=== PATIENT | female | born 1980 | race Caucasian/White ===

== ENCOUNTER 2018-04-11 05:29 | Inpatient (IN) | payer OTHER ==
[2018-04-11] MEDS ORDERED: NACL 0.9% 3 ML SYG IV (06:00)
[2018-04-11] MEDS ORDERED: DOCUSATE SODIUM 100 MG CAP PO (06:00)
[2018-04-11] MEDS ORDERED: ONDANSETRON 4 MG INJ IV (06:00)
[2018-04-11 07:17] LABS: ADD MAN DIFF? NO; HAAIG REFLEX REFLEX FILED
[2018-04-11 07:26] LABS: BASOPHIL # 0.1 10^3/ul (0.0-0.1); BASOPHILS % 0.2 % (0.0-2.0); EOSINOPHILS % 0.1 % (0.0-7.0); HEMATOCRIT 24.5 % (37.0-47.0); HEMOGLOBIN 7.8 g/dl (12.0-16.0); LYMPHOCYTES # 1.3 10^3/ul (0.8-2.9); LYMPHOCYTES % 6.1 % (15.0-51.0); MEAN CORPUSCULAR HEMOGLOBIN 32.5 pg (29.0-33.0); MEAN CORPUSCULAR HGB CONC 31.8 g/dl (32.0-37.0); MEAN CORPUSCULAR VOLUME 102.1 fl (82.0-101.0); MEAN PLATELET VOLUME 9.7 fl (7.4-10.4); MONOCYTE # 1.2 10^3/ul (0.3-0.9); MONOCYTES % 5.7 % (0.0-11.0); NEUTROPHIL # 17.9 10^3/ul (1.6-7.5); NEUTROPHILS % 87.1 % (39.0-77.0); PLATELET COUNT 408 10^3/UL (140-415); RED CELL DISTRIBUTION WIDTH 17.4 % (11.5-14.5)
[2018-04-11 07:26] LABS: WHITE BLOOD COUNT 20.6 10^3/ul (4.8-10.8)
[2018-04-11 07:39] LABS: ALANINE AMINOTRANSFERASE 13 IU/L (13-69); ALBUMIN 2.4 g/dl (3.3-4.9); ALBUMIN/GLOBULIN RATIO 0.58; ALKALINE PHOSPHATASE 206 IU/L (42-121); ANION GAP 11 (5-13); ASPARTATE AMINO TRANSFERASE 200 IU/L (15-46); BILIRUBIN,INDIRECT 0.9 mg/dl (0-1.1); BILIRUBIN,TOTAL 2.5 mg/dl (0.2-1.3); CALCIUM 7.3 mg/dl (8.4-10.2); CARBON DIOXIDE 27 mmol/L (21-31); CHLORIDE 98 mmol/L (97-110); CREATININE 0.36 mg/dl (0.44-1.00); Estimated GFR > 60 mL/min (>60); GLUCOSE 87 mg/dl (70-220); POTASSIUM 3.1 mmol/L (3.5-5.1); SODIUM 136 mmol/L (135-144); TOTAL PROTEIN 6.5 g/dl (6.1-8.1)
[2018-04-11 07:41] LABS: BLOOD UREA NITROGEN < 2 mg/dl (7-20)
[2018-04-11 08:09] LABS: HEPATITIS B SURFACE ANTIGEN NEGATIVE (NEGATIVE)
[2018-04-11 08:12] LABS: FERRITIN 58.6 ng/ml (6.2-137.0)
[2018-04-11 08:26] LABS: HEPATITIS B CORE ANTIBODY NEGATIVE (NEGATIVE); HEPATITIS C VIRAL ANTIBODY NEGATIVE (NEGATIVE)
[2018-04-11] MEDS: POTASSIUM CHLORIDE (SR) 20 MEQ TAB PO (08:29)
[2018-04-11] MEDS ORDERED: ESCITALOPRAM 10 MG TAB PO (09:00)
[2018-04-11] MEDS ORDERED: GABAPENTIN 300 MG CAP PO (09:00)
[2018-04-11 09:33] LABS: FOLATE 4.1 ng/ml (2.8-20.0)
[2018-04-11 09:33] LABS: CREATINE KINASE < 20 IU/L (23-200)
[2018-04-11] MEDS: CEFTRIAXONE 2 GM/50 ML (PMX) 50 ML IVPB (09:38)
[2018-04-11 09:53] LABS: LACTATE DEHYDROGENASE 376 IU/L (313-618)
[2018-04-11 09:53] LABS: IRON 35 ug/dl (35-150)
[2018-04-11 10:02] LABS: % IRON SATURATION 18 % SAT (22-52); TOTAL IRON BINDING CAPACITY 200 ug/dl (241-421)
[2018-04-11 12:47] LABS: INR 1.64; PROTIME 19.8 Sec (11.9-14.9); PT RATIO 1.5
[2018-04-11] MEDS: ACETAMINOPHEN 325 MG TAB PO (14:37)
[2018-04-11] MEDS: FUROSEMIDE 20 MG TAB PO (16:00)
[2018-04-11] MEDS: SPIRONOLACTONE 50 MG TAB PO (17:30)
[2018-04-11] MEDS: LIDOCAINE 1% (MPF) 5 ML VIAL (18:18)
[2018-04-11 19:24] LABS: FLD RBC 1000 /uL; FLD WBC 22 /cmm
[2018-04-11 19:28] LABS: FLUID GLUCOSE 102 mg/dl
[2018-04-11 19:29] LABS: FLUID TOTAL PROTEIN < 2.0 g/dl; FLUID TYPE ASCITES FLUID
[2018-04-11 19:32] LABS: FLD TYPE ASCITES
[2018-04-11 19:33] LABS: FLD CLARITY HAZY; FLD COLOR YELLOW
[2018-04-12 06:11] LABS: ADD MAN DIFF? NO
[2018-04-12 06:13] LABS: WHITE BLOOD COUNT 20.5 10^3/ul (4.8-10.8)
[2018-04-12 06:13] LABS: BASOPHIL # 0.1 10^3/ul (0.0-0.1); BASOPHILS % 0.3 % (0.0-2.0); EOSINOPHILS % 0.2 % (0.0-7.0); HEMATOCRIT 24.3 % (37.0-47.0); HEMOGLOBIN 7.9 g/dl (12.0-16.0); LYMPHOCYTES # 1.2 10^3/ul (0.8-2.9); MEAN CORPUSCULAR HEMOGLOBIN 33.1 pg (29.0-33.0); MEAN CORPUSCULAR HGB CONC 32.5 g/dl (32.0-37.0); MEAN CORPUSCULAR VOLUME 101.7 fl (82.0-101.0); MEAN PLATELET VOLUME 9.7 fl (7.4-10.4); MONOCYTE # 1.1 10^3/ul (0.3-0.9); MONOCYTES % 5.3 % (0.0-11.0); NEUTROPHIL # 17.8 10^3/ul (1.6-7.5); NEUTROPHILS % 87.1 % (39.0-77.0); PLATELET COUNT 376 10^3/UL (140-415); RED BLOOD COUNT 2.39 10^6/ul (4.20-5.40); RED CELL DISTRIBUTION WIDTH 17.3 % (11.5-14.5)
[2018-04-12 07:35] LABS: ALANINE AMINOTRANSFERASE 9 IU/L (13-69); ALBUMIN 2.2 g/dl (3.3-4.9); ALBUMIN/GLOBULIN RATIO 0.59; ALKALINE PHOSPHATASE 189 IU/L (42-121); ANION GAP 9 (5-13); ASPARTATE AMINO TRANSFERASE 164 IU/L (15-46); BILIRUBIN,INDIRECT 0.8 mg/dl (0-1.1); BILIRUBIN,TOTAL 2.1 mg/dl (0.2-1.3); BLOOD UREA NITROGEN 2 mg/dl (7-20); CALCIUM 7.3 mg/dl (8.4-10.2); CARBON DIOXIDE 25 mmol/L (21-31); CHLORIDE 102 mmol/L (97-110); CREATININE 0.35 mg/dl (0.44-1.00); Estimated GFR > 60 mL/min (>60); GLUCOSE 99 mg/dl (70-220); POTASSIUM 3.1 mmol/L (3.5-5.1); SODIUM 136 mmol/L (135-144); TOTAL PROTEIN 5.9 g/dl (6.1-8.1)
[2018-04-12 07:45] LABS: RETICULOCYTE RBC 2.41
[2018-04-12 07:45] LABS: RETICULOCYTE COUNT # 0.075 X10^6 (0.020-0.110); RETICULOCYTE COUNT % 3.1 % (0.5-1.5)
[2018-04-12] MEDS: POTASSIUM CHLORIDE (SR) 20 MEQ TAB PO ×2 (08:31→12:30)
[2018-04-12] MEDS: CEFTRIAXONE 2 GM/50 ML (PMX) 50 ML IVPB (08:31)
[2018-04-12] MEDS: SPIRONOLACTONE 50 MG TAB PO (08:31)
[2018-04-12] MEDS: FUROSEMIDE 20 MG TAB PO (08:31)
[2018-04-12 08:45] LABS: ALANINE AMINOTRANSFERASE 16 IU/L (13-69); ALBUMIN 2.2 g/dl (3.3-4.9); ALKALINE PHOSPHATASE 204 IU/L (42-121); ANION GAP 7 (5-13); ASPARTATE AMINO TRANSFERASE 186 IU/L (15-46); BILIRUBIN,INDIRECT 0.9 mg/dl (0-1.1); BILIRUBIN,TOTAL 2.5 mg/dl (0.2-1.3); BLOOD UREA NITROGEN 2 mg/dl (7-20); CALCIUM 7.3 mg/dl (8.4-10.2); CARBON DIOXIDE 25 mmol/L (21-31); CHLORIDE 104 mmol/L (97-110); CREATININE 0.35 mg/dl (0.44-1.00); Estimated GFR > 60 mL/min (>60); GLUCOSE 97 mg/dl (70-220); POTASSIUM 3.2 mmol/L (3.5-5.1); SODIUM 136 mmol/L (135-144); TOTAL PROTEIN 6.6 g/dl (6.1-8.1)
[2018-04-12] MEDS: HYDROCODONE/APAP (5/325) TAB PO (12:29)
[2018-04-12 13:24] LABS: OCCULT BLOOD STOOL POSITIVE (NEGATIVE)
[2018-04-13 07:39] LABS: ADD MAN DIFF? NO
[2018-04-13 07:41] LABS: WHITE BLOOD COUNT 23.5 10^3/ul (4.8-10.8)
[2018-04-13 07:41] LABS: ABNORMAL IP MESSAGE 1; BASOPHIL # 0.1 10^3/ul (0.0-0.1); BASOPHILS % 0.3 % (0.0-2.0); EOSINOPHILS % 0.2 % (0.0-7.0); HEMATOCRIT 23.9 % (37.0-47.0); HEMOGLOBIN 7.6 g/dl (12.0-16.0); LYMPHOCYTES # 1.7 10^3/ul (0.8-2.9); LYMPHOCYTES % 7.2 % (15.0-51.0); MEAN CORPUSCULAR HEMOGLOBIN 32.6 pg (29.0-33.0); MEAN CORPUSCULAR HGB CONC 31.8 g/dl (32.0-37.0); MEAN CORPUSCULAR VOLUME 102.6 fl (82.0-101.0); MONOCYTE # 1.3 10^3/ul (0.3-0.9); MONOCYTES % 5.4 % (0.0-11.0); NEUTROPHIL # 20.2 10^3/ul (1.6-7.5); PLATELET COUNT 394 10^3/UL (140-415); RED BLOOD COUNT 2.33 10^6/ul (4.20-5.40); RED CELL DISTRIBUTION WIDTH 17.7 % (11.5-14.5)
[2018-04-13 07:58] LABS: POSITIVE DIFF @See below
[2018-04-13 08:11] LABS: ALANINE AMINOTRANSFERASE 16 IU/L (13-69); ALBUMIN 2.2 g/dl (3.3-4.9); ALBUMIN/GLOBULIN RATIO 0.53; ALKALINE PHOSPHATASE 196 IU/L (42-121); ANION GAP 6 (5-13); ASPARTATE AMINO TRANSFERASE 193 IU/L (15-46); BILIRUBIN,INDIRECT 0.8 mg/dl (0-1.1); BILIRUBIN,TOTAL 2.1 mg/dl (0.2-1.3); BLOOD UREA NITROGEN 4 mg/dl (7-20); CALCIUM 7.4 mg/dl (8.4-10.2); CARBON DIOXIDE 24 mmol/L (21-31); CHLORIDE 104 mmol/L (97-110); Estimated GFR > 60 mL/min (>60); GLUCOSE 98 mg/dl (70-220); POTASSIUM 4.4 mmol/L (3.5-5.1); SODIUM 134 mmol/L (135-144); TOTAL PROTEIN 6.3 g/dl (6.1-8.1)
[2018-04-13] MEDS: CEFTRIAXONE 2 GM/50 ML (PMX) 50 ML IVPB (09:24)
[2018-04-13] MEDS: SPIRONOLACTONE 50 MG TAB PO (09:24)
[2018-04-13] MEDS: FUROSEMIDE 20 MG TAB PO (09:25)
[2018-04-13] MEDS: HYDROCODONE/APAP (5/325) TAB PO (21:00)
[2018-04-13] MEDS: metroNIDAZOLE 500 MG/NS (PMX) 100 ML IVPB (22:08)
[2018-04-14] MEDS: metroNIDAZOLE 500 MG/NS (PMX) 100 ML IVPB ×3 (05:51→21:27)
[2018-04-14 07:27] LABS: PROTIME 18.4 Sec (11.9-14.9); PT RATIO 1.4
[2018-04-14 07:38] LABS: AMMONIA 23 umol/l (9-30)
[2018-04-14 07:41] LABS: ALANINE AMINOTRANSFERASE 13 IU/L (13-69); ALBUMIN 2.1 g/dl (3.3-4.9); ALBUMIN/GLOBULIN RATIO 0.53; ALKALINE PHOSPHATASE 189 IU/L (42-121); ANION GAP 8 (5-13); ASPARTATE AMINO TRANSFERASE 174 IU/L (15-46); BILIRUBIN,INDIRECT 0.7 mg/dl (0-1.1); BILIRUBIN,TOTAL 1.9 mg/dl (0.2-1.3); BLOOD UREA NITROGEN 4 mg/dl (7-20); CALCIUM 7.9 mg/dl (8.4-10.2); CARBON DIOXIDE 22 mmol/L (21-31); CHLORIDE 104 mmol/L (97-110); CREATININE 0.35 mg/dl (0.44-1.00); Estimated GFR > 60 mL/min (>60); GLUCOSE 92 mg/dl (70-220); POTASSIUM 4.3 mmol/L (3.5-5.1); SODIUM 134 mmol/L (135-144)
[2018-04-14] MEDS: FUROSEMIDE 20 MG TAB PO (08:54)
[2018-04-14] MEDS: CEFTRIAXONE 2 GM/50 ML (PMX) 50 ML IVPB (08:56)
[2018-04-14] MEDS: SPIRONOLACTONE 50 MG TAB PO (08:56)
[2018-04-14] MEDS: BARIUM SULF 2% 450 ML BTL (BERRY SMOOTHIE) PO (15:18)
[2018-04-14 16:07] LABS: HAPTOGLOBIN 140 mg/dL (43-212)
[2018-04-14] MEDS: IOHEXOL 300MG/ML 150 ML BTL (17:28)
[2018-04-14] MEDS: SOD CHLORIDE 0.9% 100 ML (17:28)
[2018-04-14 18:21] LABS: ANA SCREEN POSITIVE (NEGATIVE)
[2018-04-14 19:52] LABS: ANA PATTERN SPECKLED
[2018-04-14] MEDS: HYDROCODONE/APAP (5/325) TAB PO (21:26)
[2018-04-15] MEDS: metroNIDAZOLE 500 MG/NS (PMX) 100 ML IVPB ×3 (06:00→21:11)
[2018-04-15 07:24] LABS: ADD MAN DIFF? NO
[2018-04-15 07:29] LABS: BASOPHIL # 0.1 10^3/ul (0.0-0.1); BASOPHILS % 0.4 % (0.0-2.0); EOSINOPHILS % 0.2 % (0.0-7.0); HEMATOCRIT 26.2 % (37.0-47.0); HEMOGLOBIN 8.3 g/dl (12.0-16.0); LYMPHOCYTES # 1.1 10^3/ul (0.8-2.9); LYMPHOCYTES % 5.3 % (15.0-51.0); MEAN CORPUSCULAR HEMOGLOBIN 32.5 pg (29.0-33.0); MEAN CORPUSCULAR HGB CONC 31.7 g/dl (32.0-37.0); MEAN CORPUSCULAR VOLUME 102.7 fl (82.0-101.0); MEAN PLATELET VOLUME 9.6 fl (7.4-10.4); MONOCYTE # 1.2 10^3/ul (0.3-0.9); MONOCYTES % 5.5 % (0.0-11.0); NEUTROPHIL # 18.9 10^3/ul (1.6-7.5); NEUTROPHILS % 87.3 % (39.0-77.0); PLATELET COUNT 407 10^3/UL (140-415); RED BLOOD COUNT 2.55 10^6/ul (4.20-5.40); RED CELL DISTRIBUTION WIDTH 17.5 % (11.5-14.5)
[2018-04-15 07:29] LABS: WHITE BLOOD COUNT 21.6 10^3/ul (4.8-10.8)
[2018-04-15 07:48] LABS: ALBUMIN 2.4 g/dl (3.3-4.9); ALBUMIN/GLOBULIN RATIO 0.57; ALKALINE PHOSPHATASE 214 IU/L (42-121); ASPARTATE AMINO TRANSFERASE 192 IU/L (15-46); BILIRUBIN,INDIRECT 0.7 mg/dl (0-1.1); BILIRUBIN,TOTAL 1.7 mg/dl (0.2-1.3); BLOOD UREA NITROGEN 4 mg/dl (7-20); CARBON DIOXIDE 24 mmol/L (21-31); CHLORIDE 102 mmol/L (97-110); CREATININE 0.37 mg/dl (0.44-1.00); Estimated GFR > 60 mL/min (>60); GLUCOSE 103 mg/dl (70-220); POTASSIUM 4.3 mmol/L (3.5-5.1); TOTAL PROTEIN 6.6 g/dl (6.1-8.1)
[2018-04-15 07:49] LABS: ALANINE AMINOTRANSFERASE 11 IU/L (13-69); ANION GAP 9 (5-13); SODIUM 135 mmol/L (135-144)
[2018-04-15 07:50] LABS: AMMONIA < 9 umol/l (9-30); MAGNESIUM 1.4 mg/dl (1.7-2.5)
[2018-04-15 07:50] LABS: PROTIME 18.4 Sec (11.9-14.9); PT RATIO 1.4
[2018-04-15] MEDS: FUROSEMIDE 20 MG TAB PO (08:29)
[2018-04-15] MEDS: SPIRONOLACTONE 50 MG TAB PO ×2 (08:29→18:01)
[2018-04-15] MEDS: CEFTRIAXONE 2 GM/50 ML (PMX) 50 ML IVPB (09:02)
[2018-04-15] MEDS: MAGNESIUM SULFATE 2 GM/50 ML 50 ML IVPB (10:05)
[2018-04-15 10:06] LABS: SMOOTH MUSCLE AB SCREEN NEGATIVE (NEGATIVE)
[2018-04-15] MEDS: LEVOFLOXACIN 500 MG TAB PO (10:09)
[2018-04-15] MEDS: HYDROCODONE/APAP (5/325) TAB PO (18:01)
[2018-04-16] MEDS: LEVOFLOXACIN 500 MG TAB PO (05:16)
[2018-04-16] MEDS: metroNIDAZOLE 500 MG/NS (PMX) 100 ML IVPB (05:16)
[2018-04-16 06:43] LABS: ADD MAN DIFF? NO
[2018-04-16 06:45] LABS: BASOPHIL # 0.1 10^3/ul (0.0-0.1); BASOPHILS % 0.3 % (0.0-2.0); HEMATOCRIT 24.8 % (37.0-47.0); LYMPHOCYTES # 1.3 10^3/ul (0.8-2.9); LYMPHOCYTES % 5.9 % (15.0-51.0); MEAN CORPUSCULAR HEMOGLOBIN 33.1 pg (29.0-33.0); MEAN CORPUSCULAR HGB CONC 32.3 g/dl (32.0-37.0); MEAN CORPUSCULAR VOLUME 102.5 fl (82.0-101.0); MEAN PLATELET VOLUME 9.7 fl (7.4-10.4); MONOCYTE # 1.3 10^3/ul (0.3-0.9); MONOCYTES % 5.8 % (0.0-11.0); NEUTROPHIL # 18.6 10^3/ul (1.6-7.5); NEUTROPHILS % 86.5 % (39.0-77.0); PLATELET COUNT 386 10^3/UL (140-415); RED BLOOD COUNT 2.42 10^6/ul (4.20-5.40)
[2018-04-16 06:45] LABS: WHITE BLOOD COUNT 21.5 10^3/ul (4.8-10.8)
[2018-04-16 07:08] LABS: INR 1.63; PROTIME 19.7 Sec (11.9-14.9); PT RATIO 1.5
[2018-04-16 07:08] LABS: MAGNESIUM 1.8 mg/dl (1.7-2.5)
[2018-04-16 07:13] LABS: ALANINE AMINOTRANSFERASE 14 IU/L (13-69); ALBUMIN/GLOBULIN RATIO 0.47; ALKALINE PHOSPHATASE 194 IU/L (42-121); ANION GAP 8 (5-13); ASPARTATE AMINO TRANSFERASE 203 IU/L (15-46); BILIRUBIN,INDIRECT 0.9 mg/dl (0-1.1); BILIRUBIN,TOTAL 1.7 mg/dl (0.2-1.3); BLOOD UREA NITROGEN 2 mg/dl (7-20); CALCIUM 7.6 mg/dl (8.4-10.2); CARBON DIOXIDE 21 mmol/L (21-31); CHLORIDE 105 mmol/L (97-110); CREATININE 0.39 mg/dl (0.44-1.00); Estimated GFR > 60 mL/min (>60); GLUCOSE 84 mg/dl (70-220); POTASSIUM 4.2 mmol/L (3.5-5.1); SODIUM 134 mmol/L (135-144); TOTAL PROTEIN 6.2 g/dl (6.1-8.1)
[2018-04-16] MEDS: SPIRONOLACTONE 50 MG TAB PO (09:00)
[2018-04-16] MEDS ORDERED: SPIRONOLACTONE 50 MG TAB PO (09:00)
[2018-04-16] MEDS: FUROSEMIDE 20 MG TAB PO (09:00)
[2018-04-16 11:37] LABS: UR BILIRUBIN (Dip) NEGATIVE (NEGATIVE); UR BLOOD (Dip) NEGATIVE (NEGATIVE); UR CLARITY CLEAR (CLEAR); UR COLOR AMBER (YELLOW); UR GLUCOSE (Dip) NEGATIVE (NEGATIVE); UR KETONES (Dip) NEGATIVE (NEGATIVE); UR SPECIFIC GRAVITY (Dip) 1.012 (1.003-1.030); UR TOTAL PROTEIN (Dip) NEGATIVE (NEGATIVE)
[2018-04-16 11:38] LABS: ADD UMIC NO; UR ASCORBIC ACID NEGATIVE (NEGATIVE); UR LEUKOCYTE ESTERASE (Dip) NEGATIVE Leu/ul (NEGATIVE); UR NITRITE (Dip) NEGATIVE (NEGATIVE); UR UROBILINOGEN (Dip) NEGATIVE (NEGATIVE)
[2018-04-16] MEDS: FLUCONAZOLE 150 MG TAB PO (12:26)
[2018-04-16] MEDS: metroNIDAZOLE 500 MG TAB PO (13:14)
[2018-04-17 10:26] LABS: MITOCHONDRIAL TB NEGATIVE (NEGATIVE)
== END 2018-04-16 14:05 | disposition home or self-care (01) | DRG 432 ==
LOC: 2NE 05:29
PROC: 0W9G3ZX Drainage of Peritoneal Cavity, Percutaneous Approach, Diagnostic (ICD-10-PCS; principal; 2018-04-11)
DX: K70.30 Alcoholic cirrhosis of liver without ascites (principal); K65.2 Spontaneous bacterial peritonitis; N39.0 Urinary tract infection, site not specified; K76.6 Portal hypertension; E87.1 Hypo-osmolality and hyponatremia; F10.988 Alcohol use, unspecified with other alcohol-induced disorder; B96.1 Klebsiella pneumoniae [K. pneumoniae] as the cause of diseases classified elsewhere; D53.9 Nutritional anemia, unspecified; E88.09 Other disorders of plasma-protein metabolism, not elsewhere classified; E83.51 Hypocalcemia
CPT/HCPCS: 74177; 74181; 76705; 78226; 80053; 81003; 82042; 82140; 82270; 82550; 82607; 82728; 82746; 82787; 82945; 83010; 83540; 83615; 83735; 84145; 84157; 84443; 84703; 85025; 85045; 85610; 86038; 86255; 86376; 86704; 86709; 86803; 87040; 87070; 87086; 87102; 87116; 87340; 89051